=== PATIENT | male | born 1960 | race Caucasian/White ===

== ENCOUNTER 2017-12-24 17:15 | Inpatient (IN) | payer OTHER ==
[~2017-12-24] VITALS: Ht 180.3 cm; Wt 138.2 kg
[2017-12-24] MEDS ORDERED: SODIUM CHLORIDE FLUSH 10ML SYR IVF ONE (18:00)
[2017-12-24 18:12] LABS: MEAN CORPUSCULAR HEMOGLOBIN 29.9 pg (27.5-34.5); MEAN CORPUSCULAR HGB CONC 33.7 g/dL (33.2-36.2); MEAN CORPUSCULAR VOLUME 88.6 fL (81-97); MEAN PLATELET VOLUME 7.4 fL (7.4-10.4); PLATELET COUNT 275 x10^3/uL (130-400); RED BLOOD COUNT 5.43 x10^6/uL (4.38-5.82); RED CELL DISTRIBUTION WIDTH 14.9 % (9.4-14.8)
[2017-12-24 18:22] LABS: ALANINE AMINOTRANSFERASE 20 U/L (12-78); ALBUMIN 3.5 g/dL (3.4-5.0); ANION GAP 8 mmol/L (5-15); CALCIUM 8.2 mg/dL (8.5-10.1); CHLORIDE 104 mmol/L (98-107); CREATININE 1.11 mg/dL (0.7-1.3)
[2017-12-24 18:27] LABS: ALKALINE PHOSPHATASE 66 U/L (45-117); BILIRUBIN,TOTAL 0.7 mg/dL (0.2-1.0); TOTAL PROTEIN 7.4 g/dL (6.4-8.2); TROPONIN I < 0.015 ng/mL (0.000-0.045)
[2017-12-24 18:29] LABS: BASOPHILS # (AUTO) 0.03 x10^3/uL (0-0.1); BASOPHILS % (AUTO) 0 % (0-1); EOSINOPHILS # (AUTO) 0.31 x10^3/uL (0-0.4); EOSINOPHILS % (AUTO) 2 % (1-7); LYMPHOCYTES # (AUTO) 1.51 x10^3/uL (1-3.4); LYMPHOCYTES % (AUTO) 11 % (22-44); MD SCAN; MONOCYTES # (AUTO) 1.65 x10^3/uL (0.2-0.8); MONOCYTES % (AUTO) 12 % (2-9); NEUTROPHILS # (AUTO) 10.38 x10^3/uL (1.8-6.8); NEUTROPHILS % (AUTO) 75 % (42-75)
[2017-12-24 18:58] LABS: MICROSCOPIC AUTO
[2017-12-24 19:00] LABS: CULTURE INDICATED? YES
[2017-12-24] MEDS ORDERED: OMNIPAQUE 350 MG/ML, 100ML BOTTLE ONE (19:38)
[2017-12-24] MEDS ORDERED: LEVO175T5 PO (20:14)
[2017-12-24] MEDS ORDERED: DOCUSATE 100 MG CAPSULE PO PRN (21:30)
[2017-12-24] MEDS ORDERED: POTASSIUM CHLORIDE 20 MEQ TAB.ER.PRT PO ONE (21:30)
[2017-12-24] MEDS ORDERED: ONDANSETRON ODT 4 MG PO PRN (21:30)
[2017-12-24] MEDS ORDERED: hydrALAzine 20 MG/ML, 1ML IVPush PRN (21:30)
[2017-12-24] MEDS ORDERED: FUROSEMIDE 40 MG/4 ML IV ONE (21:30)
[2017-12-24] MEDS ORDERED: FUROSEMIDE 40 MG/4 ML ONE (21:59)
[2017-12-24] MEDS ORDERED: hydrALAzine 20 MG/ML, 1ML ONE (21:59)
[2017-12-24] MEDS ORDERED: POTASSIUM CHLORIDE 20 MEQ TAB.ER.PRT ONE (21:59)
[2017-12-24 23:23] LABS: TROPONIN I < 0.015 ng/mL (0.000-0.045)
[2017-12-25 04:24] LABS: MEAN CORPUSCULAR HEMOGLOBIN 29.4 pg (27.5-34.5); MEAN CORPUSCULAR HGB CONC 33.4 g/dL (33.2-36.2); MEAN CORPUSCULAR VOLUME 87.9 fL (81-97); MEAN PLATELET VOLUME 7.5 fL (7.4-10.4); PLATELET COUNT 269 x10^3/uL (130-400); RED BLOOD COUNT 5.52 x10^6/uL (4.38-5.82); RED CELL DISTRIBUTION WIDTH 14.8 % (9.4-14.8)
[2017-12-25 04:34] LABS: ANION GAP 9 mmol/L (5-15); CALCIUM 8.4 mg/dL (8.5-10.1); CHLORIDE 102 mmol/L (98-107)
[2017-12-25 04:42] LABS: CREATININE 1.15 mg/dL (0.7-1.3); FREE T4 (FREE THYROXINE) 0.99 ng/dL (0.76-1.46); TROPONIN I < 0.015 ng/mL (0.000-0.045)
[2017-12-25 05:33] LABS: BASOPHILS # (AUTO) 0.04 x10^3/uL (0-0.1); BASOPHILS % (AUTO) 0 % (0-1); EOSINOPHILS # (AUTO) 0.27 x10^3/uL (0-0.4); EOSINOPHILS % (AUTO) 2 % (1-7); LYMPHOCYTES # (AUTO) 1.48 x10^3/uL (1-3.4); LYMPHOCYTES % (AUTO) 11 % (22-44); MD SCAN; MONOCYTES # (AUTO) 1.77 x10^3/uL (0.2-0.8); MONOCYTES % (AUTO) 13 % (2-9); NEUTROPHILS # (AUTO) 10.13 x10^3/uL (1.8-6.8); NEUTROPHILS % (AUTO) 74 % (42-75)
[2017-12-25] MEDS ORDERED: POTASSIUM CHLORIDE 20 MEQ TAB.ER.PRT ONE (06:34)
[2017-12-25] MEDS: LEVOTHYROXINE 175 MCG TABLET PO SCH (06:53)
[2017-12-25] MEDS ORDERED: POTASSIUM CHLORIDE 20 MEQ TAB.ER.PRT PO SCH (08:00)
[2017-12-25 12:20] VITALS: BP 164/111
[2017-12-25] MEDS: LABETALOL 5MG/ML, 20ML IVPush PRN (12:34)
[2017-12-25 13:23] VITALS: BP 152/98
[2017-12-25 13:45] VITALS: BP 145/84
[2017-12-25] MEDS: GUAIFENESIN/DM 200-20MG, 10ML UDC PO PRN ×2 (15:06→21:30)
[2017-12-25 15:11] VITALS: BP 155/95
[2017-12-25] MEDS ORDERED: TRAZ50TA18 PO (16:02)
[2017-12-25] MEDS ORDERED: ASPI-496 PO (16:02)
[2017-12-25] MEDS: LISINOPRIL 10 MG TABLET PO SCH (17:07)
[2017-12-25 17:13] VITALS: BP 167/98
[2017-12-25] MEDS ORDERED: ROPI0.2537 PO (19:14)
[2017-12-25] MEDS ORDERED: EZET10TA26 PO (19:23)
[2017-12-25] MEDS ORDERED: NIAC500T26 PO (19:23)
[2017-12-25] MEDS ORDERED: PRAM0.12 PO (19:24)
[2017-12-25] MEDS ORDERED: DOXA2TAB9 PO (19:28)
[2017-12-25] MEDS ORDERED: ROPINIROLE 0.25MG TABLET PO PRN (20:00)
[2017-12-25] MEDS: ACETAMINOPHEN 325 MG TABLET PO PRN (20:40)
[2017-12-25] MEDS ORDERED: DOXAZOSIN 2MG TABLET PO SCH (21:00)
[2017-12-25] MEDS ORDERED: NIACIN 500 MG TABLET.ER PO SCH ×2 (21:00)
[2017-12-25] MEDS ORDERED: EZETIMIBE 10 MG TABLET PO SCH (21:00)
[2017-12-25] MEDS ORDERED: TRAZODONE 50MG TABLET PO PRN (21:00)
[2017-12-25 21:27] VITALS: BP 145/96
[2017-12-26 00:53] VITALS: BP 121/85
[2017-12-26] MEDS: LEVOTHYROXINE 175 MCG TABLET PO SCH (05:43)
[2017-12-26] MEDS: ACETAMINOPHEN 325 MG TABLET PO PRN (05:44)
[2017-12-26] MEDS: LABETALOL 5MG/ML, 20ML IVPush PRN (06:29)
[2017-12-26 07:10] VITALS: BP 143/83
[2017-12-26] MEDS ORDERED: HYDROCHLOROTHIAZIDE 25 MG TABLET PO SCH (09:00)
[2017-12-26] MEDS ORDERED: EZETIMIBE 10 MG TABLET PO SCH (09:00)
[2017-12-26] MEDS: LISINOPRIL 10 MG TABLET PO SCH (09:03)
[2017-12-26 10:10] VITALS: BP 158/99
[2017-12-26 13:40] VITALS: BP 150/94
[2017-12-26] MEDS ORDERED: HYDR25TA6 PO (15:48)
[2017-12-26] MEDS ORDERED: GUAI5SYR PO (15:48)
[2017-12-26] MEDS ORDERED: LISI-167 PO (15:48)
== END 2017-12-26 16:53 | disposition home or self-care (01) | DRG 305 ==
LOC: ED 20:27 → EDIP 20:49 → 4WST 12-25 10:38
PROVIDERS: ADMIT Hospitalist; ATTEND Hospitalist
DX: I16.9 Hypertensive crisis, unspecified (principal); E66.2 Morbid (severe) obesity with alveolar hypoventilation; R04.2 Hemoptysis; J98.11 Atelectasis; Z68.41 Body mass index [BMI] 40.0-44.9, adult; I10 Essential (primary) hypertension; M79.89 Other specified soft tissue disorders; E87.6 Hypokalemia; E03.9 Hypothyroidism, unspecified; G25.81 Restless legs syndrome; I35.0 Nonrheumatic aortic (valve) stenosis; I34.0 Nonrheumatic mitral (valve) insufficiency; E78.5 Hyperlipidemia, unspecified; J20.9 Acute bronchitis, unspecified; R32 Unspecified urinary incontinence; R73.03 Prediabetes
CPT/HCPCS: 36415; 71045; 71275; 80048; 80053; 81001; 83605; 83735; 83880; 84145; 84439; 84443; 84484; 85025; 87040; 87070; 87086; 87205; 93005; 93306; 96374; J1940; Q9967; J0360